=== PATIENT | female | born 1980 | race African-American/Black ===

== ENCOUNTER 2016-04-30 23:30 | Emergency (ER) | payer OTHER ==
[2016-05-01] MEDS ORDERED: ONDANSETRON 4 MG VIAL ONE (01:21)
[2016-05-01] MEDS ORDERED: KETOROLAC 30 MG/ML VIAL ONE (01:22)
[2016-05-01] MEDS ORDERED: ORPHENADRINE 60 MG/2 ML AMP ONE (03:08)
== END 2016-05-01 03:48 | disposition home or self-care (01) ==
LOC: ER 23:30
CPT/HCPCS: 36415; 74000; 80053; 81003; 82150; 83690; 84703; 85025; 96374; 96375

== ENCOUNTER 2016-05-19 20:16 | Emergency (ER) | payer OTHER ==
[2016-05-19] MEDS ORDERED: ONDANSETRON 4 MG VIAL ONE ×2 (21:00→23:17)
[2016-05-19] MEDS ORDERED: DILAUDID 1 MG/ML AMP ONE (21:00)
[2016-05-19] MEDS ORDERED: SODIUM CHLORIDE 0.9% 1,000 ML ONE (21:00)
[2016-05-19] MEDS ORDERED: DIPHENHYDRAMINE 50 MG/ML VIAL ONE (23:17)
== END 2016-05-20 00:45 | disposition home or self-care (01) ==
LOC: ER 20:16
DX: S06.0X0A Concussion without loss of consciousness, initial encounter (principal); Y04.2XXA Assault by strike against or bumped into by another person, initial encounter; Y92.199 Unspecified place in other specified residential institution as the place of occurrence of the external cause; S00.83XA Contusion of other part of head, initial encounter; H53.8 Other visual disturbances
CPT/HCPCS: 70450; 70486; 96361; 96374; 96375; 96376